=== PATIENT | female | born 1975 | race Two or more races ===

== ENCOUNTER 2017-11-23 20:28 | Emergency (ER) | payer BC ==
[~2017-11-23] VITALS: Ht 172.7 cm; Wt 78.0 kg
[2017-11-23] MEDS ORDERED: cloNIDine HCL 0.1 MG TAB ONE (20:39)
[2017-11-23] MEDS ORDERED: cloNIDine HCL 0.1 MG TAB PO ONE (20:45)
[2017-11-24] MEDS ORDERED: MORPHINE SULFATE 4 MG/ML SYR/VIAL IV ONE
[2017-11-24] MEDS ORDERED: ONDANSETRON HCL 4 MG/2 ML VIAL IV ONE
[2017-11-24 02:10] VITALS: BP 148/95
== END 2017-11-24 02:12 | disposition home or self-care (01) ==
LOC: ER 20:28
DX: I10 Essential (primary) hypertension (principal); F41.9 Anxiety disorder, unspecified; Z88.8 Allergy status to other drugs, medicaments and biological substances
CPT/HCPCS: 96374; 99284; J2405

== ENCOUNTER 2017-11-26 17:58 | Inpatient (IN) | payer BC ==
[~2017-11-26] VITALS: Ht 172.7 cm; Wt 80.0 kg
[2017-11-26] MEDS ORDERED: cloNIDine HCL 0.1 MG TAB PO ONE ×2 (18:30→20:45)
[2017-11-26 18:55] LABS: Basophils # (auto) 0.1 uL; Basophils % (auto) 0.9 % (0.0-2.0); Eosinophils # (auto) 0.1 uL; Eosinophils % (auto) 0.8 % (0.0-7.0); Hematocrit 35.2 % (36.0-46.0); Hemoglobin 11.6 g/dL (12.2-16.2); Lymphocytes # (auto) 2.5 uL; Mean Corpuscular Hgb Conc. 32.9 g/dL (32.0-36.0); Monocytes # (auto) 0.7 uL; Monocytes % (auto) 8.7 % (0.0-12.0); Neutrophils # (auto) 4.7 uL; Neutrophils % (auto) 58.6 % (37.0-80.0); Platelet Count (auto) 227 10^3/uL (140-450); Red Blood Cells 4.29 10^6/uL (4.0-5.20); Red Cell Distribution Width 14.6 % (11.8-14.3)
[2017-11-26 19:14] LABS: Albumin 3.2 g/dL (3.4-5.0); Anion Gap 7 (5-15); BUN/Creatinine Ratio 19.8; Blood Urea Nitrogen 22 mg/dL (7-18); Calcium 8.9 mg/dL (8.5-10.1); Carbon Dioxide 25 mmol/L (21-32); Chloride 106 mmol/L (98-107); GFR African American 70 mL/min; GFR Non-African American 58 mL/min; Glucose 78 mg/dL (74-106); Potassium 3.6 mmol/L (3.5-5.1); Sodium 138 mmol/L (136-145)
[2017-11-26 19:19] LABS: Alanine Aminotransferase 20 U/L (13-56); Alkaline Phosphatase 63 U/L (45-117); Aspartate Aminotransferase 22 U/L (15-37); Bilirubin, Total 0.2 mg/dL (0.2-1.0)
[2017-11-26] MEDS ORDERED: LORazepam 2MG/ML-1ML VIAL IV ONE (19:30)
[2017-11-26 19:53] LABS: Urine Bacteria FEW /hpf (None Seen); Urine Blood 2+ /uL (Negative); Urine Specific Gravity 1.009 (1.001-1.035); Urine WBC 1 /hpf (0 - 5)
[2017-11-26] MEDS ORDERED: TEMAZEPAM 15 MG CAP PO PRN (23:15)
[2017-11-26] MEDS ORDERED: ONDANSETRON HCL 4 MG/2 ML VIAL IV PRN (23:15)
[2017-11-26] MEDS ORDERED: LORazepam 0.5 MG TAB PO PRN (23:15)
[2017-11-26] MEDS ORDERED: HYDROcodone-ACET 5/325MG TAB PO PRN (23:15)
[2017-11-26] MEDS ORDERED: hydrALAZINE HCL 20 MG/ML VL IV ONE (23:30)
[2017-11-27] VITALS (7 sets, daily range): BP systolic 134–161; BP diastolic 85–113
[2017-11-27] MEDS ORDERED: METO25TA62 PO (00:32)
[2017-11-27] MEDS ORDERED: METO-158 PO (00:32)
[2017-11-27 05:50] LABS: Basophils # (auto) 0 uL; Basophils % (auto) 0.4 % (0.0-2.0); Eosinophils # (auto) 0.1 uL; Eosinophils % (auto) 1.2 % (0.0-7.0); Hematocrit 32.8 % (36.0-46.0); Hemoglobin 10.9 g/dL (12.2-16.2); Lymphocytes # (auto) 1.7 uL; Lymphocytes % (auto) 26.5 % (10.0-50.0); Mean Corpuscular Hemoglobin 27.1 pg (28.0-32.0); Mean Corpuscular Hgb Conc. 33.3 g/dL (32.0-36.0); Mean Corpuscular Volume 81.3 fL (80.0-100.0); Monocytes # (auto) 0.6 uL; Monocytes % (auto) 9.9 % (0.0-12.0); Platelet Count (auto) 206 10^3/uL (140-450); Red Blood Cells 4.03 10^6/uL (4.0-5.20); Red Cell Distribution Width 14.4 % (11.8-14.3); White Blood Cell 6.4 10^3/uL (4.4-10.8)
[2017-11-27 06:20] LABS: Potassium 3.6 mmol/L (3.5-5.1)
[2017-11-27 06:25] LABS: Albumin 2.7 g/dL (3.4-5.0); Calcium 8.4 mg/dL (8.5-10.1)
[2017-11-27 06:27] LABS: Bilirubin, Total 0.3 mg/dL (0.2-1.0); Total Protein 6.8 g/dL (6.4-8.2)
[2017-11-27] MEDS: ACETAMINOPHEN 325 MG TAB PO PRN ×2 (08:40→14:53)
[2017-11-27] MEDS: ENOXAPARIN SOD 40 MG/0.4 ML SYRINGE SC SCH (08:40)
[2017-11-27] MEDS: FAMOTIDINE 20 MG TAB PO SCH ×2 (08:40→22:09)
[2017-11-27] MEDS: cloNIDine HCL 0.1 MG TAB PO PRN (08:41)
[2017-11-27] MEDS: METOPROLOL TARTRATE 50 MG TAB PO SCH ×2 (08:41→22:09)
[2017-11-27] MEDS ORDERED: LOSARTAN POTASSIUM 25 MG TAB PO ONE (11:45)
[2017-11-27 13:19] LABS: Alcohol, Urine < 3.0 mg/dL (0-5); Amphetamine Screen, Urine NEGATIVE (NEGATIVE); Barbiturate Scree,Urine NEGATIVE (NEGATIVE); Benzodiazephine Screen, Urine NEGATIVE (NEGATIVE); Cannabinoid Screen, Urine NEGATIVE (NEGATIVE); Cocaine Screen, Urine NEGATIVE (NEGATIVE); Opiate Scree,Urine NEGATIVE (NEGATIVE); Phencyclidine Screen, Urine NEGATIVE (NEGATIVE)
[2017-11-28 05:00] VITALS: BP 138/72
[2017-11-28 07:32] LABS: Basophils # (auto) 0 uL; Eosinophils # (auto) 0.1 uL; Eosinophils % (auto) 1.3 % (0.0-7.0); Hemoglobin 11.8 g/dL (12.2-16.2); Lymphocytes # (auto) 1.8 uL; Monocytes # (auto) 0.6 uL
[2017-11-28 07:38] LABS: Basophils % (auto) 0.4 % (0.0-2.0); Hematocrit 35.8 % (36.0-46.0); Lymphocytes % (auto) 28.3 % (10.0-50.0); Mean Corpuscular Hemoglobin 26.9 pg (28.0-32.0); Mean Corpuscular Volume 81.4 fL (80.0-100.0); Monocytes % (auto) 9.1 % (0.0-12.0); Neutrophils # (auto) 3.9 uL; Neutrophils % (auto) 60.9 % (37.0-80.0); Nucleated Red Blood Cells % 0.2 %; Platelet Count (auto) 210 10^3/uL (140-450); Red Cell Distribution Width 14.6 % (11.8-14.3); White Blood Cell 6.4 10^3/uL (4.4-10.8)
[2017-11-28 08:00] LABS: BUN/Creatinine Ratio 17.8; Calcium 8.4 mg/dL (8.5-10.1); Potassium 3.9 mmol/L (3.5-5.1)
[2017-11-28] MEDS: METOPROLOL TARTRATE 50 MG TAB PO SCH (08:50)
[2017-11-28] MEDS: FAMOTIDINE 20 MG TAB PO SCH ×2 (08:50→21:02)
[2017-11-28] MEDS: ENOXAPARIN SOD 40 MG/0.4 ML SYRINGE SC SCH (08:51)
[2017-11-28] MEDS: ACETAMINOPHEN 325 MG TAB PO PRN (08:54)
[2017-11-28 09:00] VITALS: BP 151/106
[2017-11-28] MEDS ORDERED: TRIAMTERENE/HCTZ 75/50MG TABLET PO SCH (10:00)
[2017-11-28] MEDS ORDERED: LOSARTAN POTASSIUM 25 MG TAB PO SCH (10:00)
[2017-11-28] MEDS ORDERED: IOHEXOL 350 MG/ML 100ML IJ ONE (11:29)
[2017-11-28] MEDS ORDERED: SODIUM CHLORIDE 0.9% 1,000 ML IV ONE (11:30)
[2017-11-28] MEDS: cloNIDine HCL 0.1 MG TAB PO PRN (11:43)
[2017-11-28 13:00] VITALS: BP 177/97
[2017-11-28 17:00] VITALS: BP 125/82
[2017-11-28] MEDS: LOSARTAN POTASSIUM 25 MG TAB PO SCH (21:02)
[2017-11-28 22:00] VITALS: BP 160/102
[2017-11-28 22:15] VITALS: BP 146/98
[2017-11-28 22:35] LABS: Protein, Urine 78.2 mg/dL (0.0-11.9)
[2017-11-29] VITALS (7 sets, daily range): BP systolic 122–142; BP diastolic 75–89
[2017-11-29 05:56] LABS: Basophils # (auto) 0 uL; Basophils % (auto) 0.4 % (0.0-2.0); Eosinophils # (auto) 0.1 uL; Eosinophils % (auto) 1.2 % (0.0-7.0); Hematocrit 36.9 % (36.0-46.0); Hemoglobin 12.3 g/dL (12.2-16.2); Lymphocytes # (auto) 1.9 uL; Lymphocytes % (auto) 23.9 % (10.0-50.0); Mean Corpuscular Hemoglobin 27.3 pg (28.0-32.0); Mean Corpuscular Hgb Conc. 33.2 g/dL (32.0-36.0); Mean Corpuscular Volume 82.1 fL (80.0-100.0); Monocytes # (auto) 0.9 uL; Monocytes % (auto) 10.6 % (0.0-12.0); Neutrophils # (auto) 5.2 uL; Neutrophils % (auto) 63.9 % (37.0-80.0); Nucleated Red Blood Cells % 0.1 %; Platelet Count (auto) 224 10^3/uL (140-450); Red Cell Distribution Width 14.4 % (11.8-14.3); White Blood Cell 8.2 10^3/uL (4.4-10.8)
[2017-11-29 06:22] LABS: BUN/Creatinine Ratio 18.7; Calcium 9.3 mg/dL (8.5-10.1); Potassium 3.9 mmol/L (3.5-5.1)
[2017-11-29] MEDS: TRIAMTERENE/HCTZ 75/50MG TABLET PO SCH (09:07)
[2017-11-29] MEDS: LOSARTAN POTASSIUM 25 MG TAB PO SCH ×2 (09:08→21:30)
[2017-11-29] MEDS: FAMOTIDINE 20 MG TAB PO SCH ×2 (09:09→21:29)
[2017-11-29] MEDS: ENOXAPARIN SOD 40 MG/0.4 ML SYRINGE SC SCH (09:10)
[2017-11-29] MEDS: ACETAMINOPHEN 325 MG TAB PO PRN (09:20)
[2017-11-29] MEDS ORDERED: amLODIPine BESYLATE 5 MG TAB PO SCH (10:00)
[2017-11-29] MEDS ORDERED: METOPROLOL SUCCINATE XL 50 MG TAB PO SCH (10:00)
[2017-11-29] MEDS ORDERED: DOCUSATE SOD 100 MG CAP PO ONE (10:45)
[2017-11-29] MEDS ORDERED: amLODIPine BESYLATE 5 MG TAB PO ONE (14:45)
[2017-11-29] MEDS: BOOST 8 ounces PO SCH (17:54)
[2017-11-30 05:00] VITALS: BP 123/87
[2017-11-30 06:18] LABS: BUN/Creatinine Ratio 20.8; Potassium 4.1 mmol/L (3.5-5.1)
[2017-11-30 08:00] VITALS: BP 121/80
[2017-11-30 09:00] VITALS: BP 121/80
[2017-11-30] MEDS ORDERED: LACTULOSE 20Gm/30ML SOLN PO ONE (10:00)
[2017-11-30] MEDS ORDERED: amLODIPine BESYLATE 5 MG TAB PO SCH (10:00)
[2017-11-30] MEDS ORDERED: METOPROLOL SUCCINATE XL 50 MG TAB PO SCH (10:00)
[2017-11-30] MEDS ORDERED: NIFEdipine ER 30 MG TAB PO SCH (10:00)
[2017-11-30] MEDS: TRIAMTERENE/HCTZ 75/50MG TABLET PO SCH (10:03)
[2017-11-30] MEDS: FAMOTIDINE 20 MG TAB PO SCH (10:03)
[2017-11-30] MEDS: BOOST 8 ounces PO SCH (10:03)
[2017-11-30] MEDS ORDERED: NIF30XLT PO (12:41)
[2017-11-30] MEDS ORDERED: MAX7550T PO (12:41)
[2017-11-30] MEDS ORDERED: METO50TA7 PO (12:41)
[2017-11-30 13:00] VITALS: BP 124/85
[2017-11-30 14:02] VITALS: BP 124/85
== END 2017-11-30 15:30 | disposition home or self-care (01) | DRG 304 ==
LOC: ER 18:02 → OVERFLOW 18:03 → WEST WING 23:23
PROVIDERS: ADMIT Nurse Practitioner; ATTEND Internal Medicine
DX: I16.1 Hypertensive emergency (principal); N17.0 Acute kidney failure with tubular necrosis; E46 Unspecified protein-calorie malnutrition; I13.10 Hypertensive heart and chronic kidney disease without heart failure, with stage 1 through stage 4 chronic kidney disease, or unspecified chronic kidney disease; D64.9 Anemia, unspecified; F41.9 Anxiety disorder, unspecified; K59.00 Constipation, unspecified; N18.3 Chronic kidney disease, stage 3 (moderate); R51 Headache; R80.9 Proteinuria, unspecified; Z68.26 Body mass index [BMI] 26.0-26.9, adult; Z82.3 Family history of stroke; Z82.49 Family history of ischemic heart disease and other diseases of the circulatory system; Z83.3 Family history of diabetes mellitus
CPT/HCPCS: 36415; 70450; 71045; 76775; 80048; 80053; 80307; 81001; 81025; 82088; 82533; 82570; 83735; 83835; 84156; 84244; 84443; 84484; 85025; 93005; 93306; 96374; J2405

== ENCOUNTER 2019-08-31 14:27 | Emergency (ER) | payer BC ==
[~2019-08-31] VITALS: Ht 172.7 cm; Wt 71.2 kg
[~2019-08-31 14:27] MED LIST: MAX7550T PO; METO-6 PO; NIFE1TAB36 PO
[2019-08-31] MEDS ORDERED: cloNIDine HCL 0.1 MG TAB PO ONE (14:45)
[2019-08-31 15:29] LABS: Basophils # (auto) 0.1 uL; Basophils % (auto) 1.3 % (0.0-2.0); Eosinophils # (auto) 0.1 uL; Eosinophils % (auto) 1.3 % (0.0-7.0); Hematocrit 35.7 % (36.0-46.0); Hemoglobin 12.2 g/dL (12.2-16.2); Lymphocytes # (auto) 1.9 uL; Lymphocytes % (auto) 22.3 % (10.0-50.0); Mean Corpuscular Hemoglobin 28.4 pg (28.0-32.0); Mean Corpuscular Hgb Conc. 34.2 g/dL (32.0-36.0); Mean Corpuscular Volume 83.2 fL (80.0-100.0); Monocytes # (auto) 0.7 uL; Neutrophils # (auto) 5.7 uL; Neutrophils % (auto) 67.1 % (37.0-80.0); Platelet Count (auto) 275 10^3/uL (140-450); White Blood Cell 8.5 10^3/uL (4.4-10.8)
[2019-08-31 15:45] LABS: Albumin 3.3 g/dL (3.4-5.0); Calcium 9.1 mg/dL (8.5-10.1); Potassium 4.2 mmol/L (3.5-5.1)
[2019-08-31 15:49] LABS: Bilirubin, Total 0.3 mg/dL (0.2-1.0); Total Protein 8.2 g/dL (6.4-8.2)
[2019-08-31 17:06] VITALS: BP 137/90
== END 2019-08-31 17:08 | disposition home or self-care (01) ==
LOC: ER 14:37
DX: I16.0 Hypertensive urgency (principal); I10 Essential (primary) hypertension
CPT/HCPCS: 36415; 80053; 84484; 85025; 93005

== ENCOUNTER 2019-09-01 11:06 | Inpatient (IN) | payer BC ==
[~2019-09-01] VITALS: Ht 172.7 cm; Wt 79.6 kg
[2019-09-01] MEDS ORDERED: hydrALAZINE HCL 20 MG/ML VL IV ONE (11:30)
[2019-09-01 11:46] LABS: Basophils # (auto) 0 uL; Basophils % (auto) 0.5 % (0.0-2.0); Eosinophils # (auto) 0.1 uL; Eosinophils % (auto) 1.2 % (0.0-7.0); Hematocrit 34.3 % (36.0-46.0); Hemoglobin 11.4 g/dL (12.2-16.2); Lymphocytes # (auto) 1.9 uL; Lymphocytes % (auto) 24.2 % (10.0-50.0); Mean Corpuscular Hemoglobin 27.7 pg (28.0-32.0); Mean Corpuscular Hgb Conc. 33.1 g/dL (32.0-36.0); Mean Corpuscular Volume 83.6 fL (80.0-100.0); Monocytes # (auto) 0.7 uL; Monocytes % (auto) 9.1 % (0.0-12.0); Neutrophils # (auto) 5.1 uL; Platelet Count (auto) 265 10^3/uL (140-450); White Blood Cell 7.9 10^3/uL (4.4-10.8)
[2019-09-01 12:04] LABS: Albumin 3.1 g/dL (3.4-5.0); Anion Gap 2 (5-15); Blood Urea Nitrogen 27 mg/dL (7-18); Calcium 9.2 mg/dL (8.5-10.1); Carbon Dioxide 28 mmol/L (21-32); Chloride 108 mmol/L (98-107); Glucose 85 mg/dL (74-106); Potassium 4.1 mmol/L (3.5-5.1); Sodium 138 mmol/L (136-145)
[2019-09-01 12:10] LABS: Alanine Aminotransferase 14 U/L (13-56); Alkaline Phosphatase 58 U/L (45-117); Aspartate Aminotransferase 15 U/L (15-37); BUN/Creatinine Ratio 19.4; Bilirubin, Total 0.2 mg/dL (0.2-1.0); GFR African American 53 mL/min; GFR Non-African American 44 mL/min; Total Protein 7.8 g/dL (6.4-8.2)
[2019-09-01] MEDS ORDERED: NITROGLYCERIN 0.4 MG SL TAB SL PRN (14:00)
[2019-09-01] MEDS ORDERED: HYDROcodone-ACET 5/325MG TAB PO PRN (14:00)
[2019-09-01] MEDS ORDERED: MORPHINE SULF INJ 2 MG/ML SYRINGE 1ML IV PRN ×2 (14:00)
[2019-09-01] MEDS ORDERED: LABETALOL HCL 5 MG/ML 4ML SYRINGE IV PRN (14:00)
[2019-09-01 14:47] LABS: Urine Bacteria MOD /hpf (None Seen); Urine Blood 2+ /uL (Negative); Urine Mucus FEW (None Seen); Urine Specific Gravity 1.012 (1.001-1.035); Urine WBC 3 /hpf (0 - 5)
[2019-09-01] MEDS ORDERED: NIFEdipine ER 30 MG TAB PO SCH (15:00)
[2019-09-01 17:00] VITALS: BP 172/109
--- NOTE | 2019-09-01 17:35 | NUR ---
ADMITTED 52 Y/O FEMALE FROM ER. ALERT AND ORIENTED X4, AMBULATORY. ON ENCOUNTER PATIENT REPORTED 8/10 FOR HEADACHE. ON TELE 74 SR. CALL LIGHT WITHIN REACH, ORIENTED TO UNIT AND INSTRUCTED TO CALL FOR ASSISTANCE, PRN. BED IN LOWEST POSITION FOR SAFETY.
[2019-09-01] MEDS: ACETAMINOPHEN 500 MG TAB PO PRN (17:50)
--- NOTE | 2019-09-01 19:00 | NUR ---
OPENING NOTE- NOC SHIFT PATIENT IS ALERT AND ORIENTED X4, ANSWERS IN COMPLETE SENTENCES AND MAKES APPROPRIATE EYE CONTACT. PATIENT IS IN BED, BED IS LOCKED AT LOWEST POSITION, BED RAIL UP X2 AND HEAD OF BED IS UP >30 DEGREES. BEDSIDE TABLE WITHIN REACH, CALL LIGHT WITHIN REACH. DISCUSSED POC WITH PATIENT AND INSTRUCTED PATIENT TO CALL PRN; PATIENT VERBALIZED UNDERSTANDING. WILL CONTINUE TO MONITOR Q1H AND PRN. FAMILY AT BEDSIDE, GOOD FAMILY DYNAMICS NOTED. PATIENT REPORTS HEADACHE 7/10; WILL ADMINISTER PAIN MEDS PER MD ORDERS ON eMAR.
[2019-09-01 20:00] VITALS: BP 150/107
--- NOTE | 2019-09-01 20:00 | NUR ---
150/107 CURRENT BP PATIENT WAS GIVEN ANTIHYPERTENSIVE MEDICATION BY DAY SHIFT NURSE PRIOR TO MY SHIFT. WILL REASSESS BP AT 2200
[2019-09-01 22:00] VITALS: BP_SYST 127; BP_SYST 150; BP_DIAS 107; BP_DIAS 86
--- NOTE | 2019-09-01 22:00 | NUR ---
127/86 CURRENT BLOOD PRESSURE. PATIENT RESTING IN BED. NO S/SX OF DISTRESS OR SOB.
--- NOTE | 2019-09-02 00:41 | NUR ---
OPENING NOTE- NOC SHIFT PATIENT IS ALERT AND ORIENTED X4, ANSWERS IN COMPLETE SENTENCES AND MAKES APPROPRIATE EYE CONTACT. PATIENT IS IN BED, BED IS LOCKED AT LOWEST POSITION, BED RAIL UP X2 AND HEAD OF BED IS UP >30 DEGREES. BEDSIDE TABLE WITHIN REACH, CALL LIGHT WITHIN REACH. DISCUSSED POC WITH PATIENT AND INSTRUCTED PATIENT TO CALL PRN; PATIENT VERBALIZED UNDERSTANDING. WILL CONTINUE TO MONITOR Q1H AND PRN. FAMILY AT BEDSIDE, GOOD FAMILY DYNAMICS NOTED. PATIENT REPORTS HEADACHE 03/04; WILL ADMINISTER PAIN MEDS PER MD ORDERS ON eMAR. Addendum: 09/02/19 at 0049 by Meaghan Paige RN PLEASE DISREGARD THIS NOTE.
[2019-09-02] MEDS: ONDANSETRON HCL 4 MG/2 ML VIAL IV PRN ×2 (02:29→09:30)
[2019-09-02 04:45] VITALS: BP 100/64
[2019-09-02 06:44] LABS: Albumin 3.2 g/dL (3.4-5.0); BUN/Creatinine Ratio 16.9; Bilirubin, Total 0.4 mg/dL (0.2-1.0); Phosphorus 2.5 mg/dL (2.5-4.90); Potassium 3.8 mmol/L (3.5-5.1); Total Protein 8.1 g/dL (6.4-8.2)
--- NOTE | 2019-09-02 07:20 | NUR ---
ENDORSED PATIENT CARE TO DAY SHIFT NURSE. NO S/SX OF DISTRESS, SOB OR PAIN. VITAL SIGNS WITHIN NORMAL LIMITS.
[2019-09-02 08:00] VITALS: BP 117/76
[2019-09-02 09:00] VITALS: BP 117/76
--- NOTE | 2019-09-02 09:30 | NUR ---
BLOOD PRESSURE MEDICATIONS BLOOD PRESSURE IS CURRENTLY 117/76 MM[facility]. LAST NIGHT THE PATIENT'S BLOOD PRESSURE WAS 150/107 MM[facility] AND SHE WAS GIVEN BLOOD PRESSURE MEDICATIONS. IN THE AM THE PATIENT'S BLOOD PRESSURE WAS 100/64 MMHG. THE BLOOD PRESSURE WENT UP TO THE 117/76 MMHG, BUT I WAS RELUCTANT TO GIVE MEDICATION TO THE PATIENT WITH THE DEGREE THE BLOOD PRESSURE DROPPED WHEN IT WAS GIVEN LAST NIGHT 09/01/19. I CALLED DR. BADILLO TO VOICE MY CONCERNS WITH GIVING THE PROCARDIA 90 MG PO AND THE TOPROL XL 100 MG PO. THAT ADMINISTRATION WOULD DROP HER BLOOD PRESSURE. DR. BADILLO STATED HE WOULD BE IN TO CHANGE MEDICATION AND TO HOLD THE CURRENT MEDICATIONS. WILL CONTINUE TO MONITOR.
[2019-09-02] MEDS ORDERED: NIFEdipine ER 30 MG TAB PO SCH (10:00)
--- NOTE | 2019-09-02 10:41 | NUR ---
DR. BADILLO AT BEDSIDE
[2019-09-02] MEDS: PANTOPRAZOLE 40 MG TAB PO SCH (10:53)
[2019-09-02] MEDS: METOPROLOL SUCCINATE XL 50 MG TAB PO SCH (11:07)
[2019-09-02] MEDS: NIFEdipine ER 30 MG TAB PO SCH (11:08)
[2019-09-02 12:07] LABS: Protein, Urine 96.1 mg/dL (0.0-11.9); Sodium Urine 15 mmol/L (40-220)
[2019-09-02 12:09] LABS: Alcohol, Urine < 3.0 mg/dL (0-5); Amphetamine Screen, Urine NEGATIVE (NEGATIVE); Barbiturate Scree,Urine NEGATIVE (NEGATIVE); Benzodiazephine Screen, Urine NEGATIVE (NEGATIVE); Cannabinoid Screen, Urine NEGATIVE (NEGATIVE); Cocaine Screen, Urine NEGATIVE (NEGATIVE); Creatinine, Urine 98 mg/dL (30.0-125.0); Opiate Scree,Urine NEGATIVE (NEGATIVE); Phencyclidine Screen, Urine NEGATIVE (NEGATIVE)
[2019-09-02 13:00] VITALS: BP 136/96
--- NOTE | 2019-09-02 16:10 | NUR ---
RENAL US THE RENAL US MUST BE DONE IN THE MORNING BECAUSE THE PATIENT MUST BE NPO.
[2019-09-02 17:00] VITALS: BP 130/96
--- NOTE | 2019-09-02 19:20 | NUR ---
OPENING NOTE- NOC SHIFT PATIENT IS ALERT AND ORIENTED X4, IN BED. BED IS LOCKED AT LOWEST. NO S/SX OF DISTRESS, SOB OR PAIN. DISCUSSED POC WITH PATIENT AND FAMILY. ALL QUESTIONS AND CONCERNS ADDRESSED. BEDSIDE TABLE WITHIN REACH, CALL LIGHT WITHIN REACH. WILL CONTINUE TO MONITOR Q1H AND PRN.
[2019-09-02 23:46] VITALS: BP 144/79
--- NOTE | 2019-09-03 | NUR ---
PATIENT NPO PATIENT IS AWARE THAT SHE IS TO HAVE NOTHING BY MOUTH PER MD .FOR RENAL ARTERY ULTRASOUND.
--- NOTE | 2019-09-03 00:45 | NUR ---
ENDORSED PATIENT CARE TO JACKIE CRESPO NO S/SX OF DISTRESS, SOB OR PAIN.
[2019-09-03 05:47] VITALS: BP 121/65
[2019-09-03 06:28] LABS: Albumin 3.1 g/dL (3.4-5.0); Calcium 9.3 mg/dL (8.5-10.1); Potassium 3.9 mmol/L (3.5-5.1)
[2019-09-03 06:31] LABS: BUN/Creatinine Ratio 16.5; Bilirubin, Total 0.4 mg/dL (0.2-1.0); Total Protein 7.7 g/dL (6.4-8.2)
--- NOTE | 2019-09-03 07:00 | NUR ---
OPENING SHIFT NOTE ASSUMED CARE OF THE PATIENT FROM THE FRONT OFFICE CLERK RN. THE PATIENT IS A&Ox4, NO SIGNS OR SYMPTOMS OF DISTRESS. EDUCATED THE PATIENT ON POC AND PATIENT VERBALIZED UNDERSTANDING. THE PATIENT'S CALL LIGHT IS WITHIN REACH AND BED IS IN THE LOWEST, LOCKED POSITION. WILL ROUND HOURLY AND CONTINUE TO MONITOR.
--- NOTE | 2019-09-03 07:23 | NUR ---
Closing Note patient resting in bed with even and unlabored respirations, no s/s of distress. Endorsed care to day shift RN.
--- NOTE | 2019-09-03 07:33 | NUR ---
US AT BEDSIDE
[2019-09-03 08:00] VITALS: BP 126/83
--- NOTE | 2019-09-03 08:44 | NUR ---
ss consult Per consult PCP. Angela Gurrolafe to see patient today for PCP. Addendum: 09/03/19 at 0846 by Angela YOUNG Amended: Links added.
[2019-09-03 09:00] VITALS: BP 126/83
[2019-09-03] MEDS: NIFEdipine ER 30 MG TAB PO SCH (10:04)
[2019-09-03] MEDS: METOPROLOL SUCCINATE XL 50 MG TAB PO SCH (10:05)
[2019-09-03] MEDS: PANTOPRAZOLE 40 MG TAB PO SCH (10:05)
[2019-09-03 13:00] VITALS: BP 134/90
[2019-09-03 16:55] VITALS: BP 143/83
[2019-09-03] MEDS: ACETAMINOPHEN 500 MG TAB PO PRN (17:27)
--- NOTE | 2019-09-03 19:26 | NUR ---
Opening Shift Note Assumed care of patient, awake and alert x 4. No S/S of distress/SOB or pain. Bed is in lowest position and locked. Call light within reach. Board updated. Tele box number matches monitor and leads are in correct placement. Instructed on POC and to call for assist PRN, will continue to monitor for changes Q1hr and PRN.
--- NOTE | 2019-09-03 20:12 | NUR ---
IV to right AC found to be leaking when flushed with normal saline. IV removed with catheter intact. Site covered with sterile gauze and wrapped with Coban. Patient tolerated well.
--- NOTE | 2019-09-03 20:58 | NUR ---
IV insertion IV access obtained, via clean technique by inserting a 22 gauge catheter into a vein in the right wrist after 2 attempts. IV secured properly. No trauma to site. Patient tolerated well.
[2019-09-03 22:11] VITALS: BP 121/80
[2019-09-04 05:11] VITALS: BP 130/82
[2019-09-04] MEDS ORDERED: EPLE50TA3 PO (06:31)
[2019-09-04 06:32] LABS: Potassium 3.7 mmol/L (3.5-5.1)
[2019-09-04 06:42] LABS: BUN/Creatinine Ratio 17.4; Bilirubin, Total 0.3 mg/dL (0.2-1.0); Total Protein 7.5 g/dL (6.4-8.2)
[2019-09-04 08:00] VITALS: BP 136/80
[2019-09-04 08:43] VITALS: BP 136/80
[2019-09-04] MEDS: NIFEdipine ER 30 MG TAB PO SCH (09:04)
[2019-09-04] MEDS: PANTOPRAZOLE 40 MG TAB PO SCH (09:04)
[2019-09-04] MEDS: METOPROLOL SUCCINATE XL 50 MG TAB PO SCH (09:05)
[2019-09-04] MEDS ORDERED: INFLUENZA QUAD 2019-2020 0.5ml SYRG IM ONE (10:00)
[2019-09-04 12:54] VITALS: BP 131/89
--- NOTE | 2019-09-04 14:00 | NUR ---
DISCHARGE NOTE PATIENT ALERT AND ORIENTED X4 FAMILY AT BEDSIDE ALL DISCHARGE INSTRUCTIONS GIVEN ALL QUESTIONS AND CONCERNS ADDRESSED/ANSWERED PATIENT VERBALIZED UNDERSTANDING. IGOR PEREZ MADE APPOINTMENT FOR PATIENT WITH DR REYNOLDS.IV REMOVED CATHETER INTACT PRESSURE DRESSING APPLIED PATIENT TOLERATED WELL. TELE REMOVED CLEANED AND SENT TO ICU CLINICAL PARTNER NOTIFIED. PATIENT AMBULATED TO PERSONAL VEHICLE USING STEADY GAIT DENIES ALL PAIN SOB AND DISTRESS.
== END 2019-09-04 14:00 | disposition home or self-care (01) | DRG 682 ==
LOC: ER 11:06 → TELE 11:07 → TELE-WESTW 15:57
PROVIDERS: ADMIT Nurse Practitioner Acute Care; ATTEND Family Medicine
DX: N17.0 Acute kidney failure with tubular necrosis (principal); I50.23 Acute on chronic systolic (congestive) heart failure; I13.0 Hypertensive heart and chronic kidney disease with heart failure and stage 1 through stage 4 chronic kidney disease, or unspecified chronic kidney disease; N18.3 Chronic kidney disease, stage 3 (moderate); D64.9 Anemia, unspecified; E88.09 Other disorders of plasma-protein metabolism, not elsewhere classified; R31.29 Other microscopic hematuria; Z83.3 Family history of diabetes mellitus; Z82.49 Family history of ischemic heart disease and other diseases of the circulatory system; Z88.8 Allergy status to other drugs, medicaments and biological substances; Z82.3 Family history of stroke; Z79.899 Other long term (current) drug therapy; Z23 Encounter for immunization
CPT/HCPCS: 36415; 76775; 80053; 80307; 81001; 82306; 82570; 83520; 83615; 83970; 84100; 84156; 84300; 84484; 85025; 85652; 86038; 86160; 86256; 93976; 96374; G0378; J2405

== ENCOUNTER → 2019-09-30 | Outpatient (CLI) | payer BC ==
[~2019-09-30] MED LIST changes: +EPLE50TA3 PO; +LIDOCAINE 2%HCL (LOCAL ANESTH.) INJ 20ML MDV ONE; +MIDAZOLAM HCL 1MG/1ML-2 ML VIAL IV ONE; +MIDAZOLAM HCL 1MG/1ML-2 ML VIAL ONE; +fentaNYL CITRATE 100 MCG/2 ML VL IV ONE; +fentaNYL CITRATE 100 MCG/2 ML VL ONE
[2019-09-30 09:45] LABS: INR 1.06 (0.9-1.15)
== END | disposition home or self-care (01) ==
LOC: CT 08:45
PROVIDERS: ATTEND Internal Medicine
DX: I10 Essential (primary) hypertension (principal); N02.8 Recurrent and persistent hematuria with other morphologic changes; Z87.891 Personal history of nicotine dependence; Z88.8 Allergy status to other drugs, medicaments and biological substances
CPT/HCPCS: 36415; 50200; 74150; 77012; 85610; 88300; J2250; J3010; 10022

== ENCOUNTER 2021-01-30 00:10 | Emergency (ER) | payer BC ==
[~2021-01-30] VITALS: Ht 172.7 cm; Wt 72.6 kg
[~2021-01-30 00:10] MED LIST changes: -LIDOCAINE 2%HCL (LOCAL ANESTH.) INJ 20ML MDV ONE; -MIDAZOLAM HCL 1MG/1ML-2 ML VIAL IV ONE; -MIDAZOLAM HCL 1MG/1ML-2 ML VIAL ONE; -fentaNYL CITRATE 100 MCG/2 ML VL IV ONE; -fentaNYL CITRATE 100 MCG/2 ML VL ONE
[2021-01-30 04:04] VITALS: BP 152/113
== END 2021-01-30 04:06 | disposition home or self-care (01) ==
LOC: ER 00:10
DX: I10 Essential (primary) hypertension (principal); Z79.899 Other long term (current) drug therapy

== ENCOUNTER 2022-02-08 14:42 | Emergency (ER) | payer BC ==
[~2022-02-08] VITALS: Ht 172.7 cm; Wt 77.1 kg
[2022-02-08] MEDS ORDERED: amLODIPine BESYLATE 5 MG TAB PO ONE (15:15)
[2022-02-08 15:29] LABS: Basophils # (auto) 0.1 10 ^3/uL (0-0.2); Basophils % (auto) 1.2 % (0.0-2.0); Eosinophils # (auto) 0.1 10 ^3/uL (0-0.8); Monocytes # (auto) 0.5 10 ^3/uL (0-1.3); Nucleated Red Blood Cells % 0.1 %
[2022-02-08 15:31] LABS: Eosinophils % (auto) 1.1 % (0.0-7.0); Hematocrit 33.7 % (36.0-46.0); Lymphocytes # (auto) 1.5 10 ^3/uL (0.4-5.4); Lymphocytes % (auto) 19.6 % (10.0-50.0); Mean Corpuscular Hemoglobin 24.4 pg (28.0-32.0); Mean Corpuscular Hgb Conc. 32.5 g/dL (32.0-36.0); Monocytes % (auto) 6.4 % (0.0-12.0); Neutrophils # (auto) 5.6 10 ^3/uL (1.6-8.6); Neutrophils % (auto) 71.7 % (37.0-80.0); Red Blood Cells 4.49 10^6/uL (4.0-5.20); White Blood Cell 7.8 10^3/uL (4.4-10.8)
[2022-02-08 15:32] LABS: Urine Bacteria NONE SEEN /hpf (None Seen); Urine Blood Negative /uL (Negative); Urine Specific Gravity 1.005 (1.001-1.035); Urine WBC 1 /hpf (0 - 5)
[2022-02-08 15:49] LABS: Albumin 3.2 g/dL (3.4-5.0); Calcium 8.8 mg/dL (8.5-10.1); Potassium 3.8 mmol/L (3.5-5.1)
[2022-02-08 15:52] LABS: BUN/Creatinine Ratio 17.1; Bilirubin, Total 0.3 mg/dL (0.2-1.0); Total Protein 8.1 g/dL (6.4-8.2)
[2022-02-08 17:49] VITALS: BP 162/110
== END 2022-02-08 17:50 | disposition home or self-care (01) ==
LOC: ER 14:42
DX: I10 Essential (primary) hypertension (principal); Z88.8 Allergy status to other drugs, medicaments and biological substances
CPT/HCPCS: 36415; 80053; 81001; 85025; 93005